=== PATIENT | male | born 1965 | race Caucasian/White ===

== ENCOUNTER 2024-10-30 07:25 | Emergency (ER) | payer OTHER ==
--- NOTE | 2024-10-30 07:45 | ED ---
URI HPI - General Chief Complaint: Upper Respiratory Infection Stated Complaint: fever Time Seen by Provider: 10/30/24 07:32 Source: patient, EMS, RN notes reviewed Mode of arrival: EMS Limitations: no limitations - History of Present Illness Initial Comments: This is a 58-year-old male who presents to the emergency department for coughing and congestion. States that it started last night. Cough is nonproductive. Denies any chest pain or shortness of breath. His roommates have been sick with similar symptoms. Additionally, states that he has been experiencing a flareup of his lower back pain with sciatica down the right leg. Denies any new injuries. Also denies any loss of bowel/bladder control or saddle anesthesia. States that he is waiting for his PCP to refer him to an orthopedic surgeon in the area as he just moved here from [place]. MD Complaint: cough, nasal congestion - Related Data Previous Rx's Medication Instructions Recorded Albuterol Sulfate [Albuterol 1 - 2 puff PO Q4-6H PRN #8.5 gm 10/30/24 Sulfate Hfa] Benzonatate [Tessalon Perle] 200 mg PO Q8H PRN #30 capsule 10/30/24 Meloxicam [Mobic] 15 mg PO DAILY PRN #30 tab 10/30/24 Oseltamivir [Tamiflu] 75 mg PO Q12HR 5 Days #10 cap 10/30/24 methocarbamoL [Robaxin-750] 1,500 mg PO TID PRN #30 tab 10/30/24 Allergies Allergy/AdvReac Type Severity Reaction Status Date / Time No Known Allergies Allergy Verified 10/30/24 07:41 Review of Systems ROS Statement: Those systems with pertinent positive or pertinent negative responses have been documented in the HPI. ROS Other: All systems not noted in ROS Statement are negative. Past Medical History Past Medical History: Asthma, COPD, Hyperlipidemia, Hypertension Additional Past Medical History / Comment(s): degenerative discs History of Any Multi-Drug Resistant Organisms: None Reported Additional Past Surgical History / Comment(s): Jaw repair Past Psychological History: No Psychological Hx Reported Smoking Status: Current every day smoker Past Alcohol Use History: Heavy Past Drug Use History: None Reported General Exam Limitations: no limitations General appearance: alert, in no apparent distress Head exam: Present: atraumatic, normocephalic, normal inspection Respiratory exam: Present: normal lung sounds bilaterally. Absent: respiratory distress, wheezes, rales, rhonchi, stridor Cardiovascular Exam: Present: regular rate, normal rhythm Neurological exam: Present: alert, oriented X3, CN II-XII intact Psychiatric exam: Present: normal affect, normal mood Skin exam: Present: warm, dry, intact, normal color. Absent: rash Course Vital Signs 10/30/24 10/30/24 10/30/24 07:27 09:04 09:13 Temperature 102.8 F H Pulse Rate 108 H 96 100 Respiratory 22 Rate Blood Pressure 126/72 O2 Sat by Pulse 93 L Oximetry 10/30/24 09:25 Temperature 99.5 F Pulse Rate 99 Respiratory 20 Rate Blood Pressure 108/70 O2 Sat by Pulse 94 L Oximetry Medical Decision Making - Medical Decision Making This is a 58-year-old male who presents to the emergency department for a cough. Was pt. sent in by a medical professional or institution? @ -No Did you speak to anyone other than the patient for history? @ -No Did you review nursing and triage notes? @ -Yes, and I agree, it is accurate with regards to the patient's symptoms. Were old charts reviewed? @ -No Differential Diagnosis? @ -Differential Cough: Influenza, Covid, RSV, croup, allergic rhinitis, GERD, pneumonia, bronchitis, COPD, viral pharyngitis, streptococcal pharyngitis, this is not meant to be an all-inclusive list. EKG interpreted by me (3pts min.)? @ -Not obtained X-rays interpreted by me (1pt min.)? @ -Chest x-ray obtained. My interpretation identifies a right lower lobe patchy opacity. CT interpreted by me (1pt min.)? @ -Not obtained U/S interpreted by me (1pt. min.)? @ -Not obtained What testing was considered but not performed? (CT, X-rays, U/S, labs)? Why? @ -None What meds were considered but not given? Why? @ -None Did you discuss the management of the patient with other professionals? @ -No Did you reconcile home meds? @ -No Was smoking cessation discussed for >3mins.? @ -No Was critical care preformed (if so, how long)? @ -No Were there social determinants of health that impacted care today? How? (Homelessness, low income, unemployed, alcoholism, drug addiction, transportation, low edu. Level, literacy, decrease access to med. care, longterm, rehab)? @ -No Was there de-escalation of care discussed even if they declined? (Discuss DNR or withdrawal of care, Hospice)? @ -No What co-morbidities impacted this encounter? (DM, HTN, Smoking, COPD, CAD, Cancer, CVA, Hep., AIDS, mental health diagnosis, sleep apnea, morbid obesity)? @ -Asthma, COPD Was patient admitted / discharged? @ -Discharged. Patient positive for influenza A. Chest x-ray reveals a patchy right lower lobe opacity suggestive of atelectasis versus developing pneumonia. These changes are more likely related to the influenza A. DuoNeb breathing treatment administered. He was febrile in the emergency department with a temperature of 102.8 F. He was given a dose of Tylenol along with Toradol and Norflex for his back pain. Prescription for Tamiflu provided along with Tessalon Perles and an albuterol inhaler. He also requested medication to help with his ongoing back pain until he is able to see an orthopedic surgeon. Mobic and Robaxin were prescribed. Advised follow-up with his PCP for reevaluation of symptoms and discussion of his orthopedic surgery referral. Patient discharged home in stable condition. Case discussed with ED attending Dr. Montesinos. Return precautions reviewed in depth, the patient is instructed to return to the emergency department with any new, worsening, or concerning symptoms. Patient verbalized understanding. Undiagnosed new problem with uncertain prognosis? @ -None Drug Therapy requiring intensive monitoring for toxicity (Heparin, Nitro, Insulin, Cardizem)? @ -None Were any procedures done? @ -None Diagnosis/symptom? @ -Influenza A Acute, or Chronic, or Acute on Chronic? @ -Acute Uncomplicated (without systemic symptoms) or Complicated (systemic symptoms)? @ -Uncomplicated Side effects of treatment? @ -None Exacerbation, Progression, or Severe Exacerbation] @ -Not applicable Poses a threat to life or bodily function? @ -No - Lab Data Lab Results 10/30/24 Range/Units 07:51 Influenza Type A (PCR) Detected A (Not Detectd) Influenza Type B (PCR) Not Detected (Not Detectd) RSV (PCR) Not Detected (Not Detectd) SARS-CoV-2 (PCR) Not Detected (Not Detectd) - Radiology Data Radiology results: report reviewed, image reviewed Disposition Clinical Impression: Influenza A, Chronic back pain, Right lumbar radiculopathy Disposition: HOME SELF-CARE Instructions (If sedation given, give patient instructions): Influenza (ED) Additional Instructions: Return to the emergency department with any new, worsening, or concerning symptoms. Take the Tamiflu as prescribed for 5 days. Take the Tessalon Perles up to every 8 hours as needed for coughing. You can use the albuterol inhaler every 4-6 hours as needed to help with shortness of breath and coughing. Take the Mobic once daily as needed for back pain. Take Tylenol as needed for any additional fevers or pain relief. Take the Robaxin as 1 to 2 tablets up to 3-4 times daily. Follow up with your primary care provider in 1-2 days. Prescriptions: Albuterol Sulfate [Albuterol Sulfate Hfa] 1 - 2 puff PO Q4-6H PRN #8.5 gm PRN Reason: Shortness Of Breath Meloxicam [Mobic] 15 mg PO DAILY PRN #30 tab PRN Reason: Pain methocarbamoL [Robaxin-750] 1,500 mg PO TID PRN #30 tab PRN Reason: Pain Oseltamivir [Tamiflu] 75 mg PO Q12HR 5 Days #10 cap Benzonatate [Tessalon Perle] 200 mg PO Q8H PRN #30 capsule PRN Reason: Cough Is patient prescribed a controlled substance at d/c from ED?: No Referrals: Zeina Cleveland MD [Primary Care Provider] - 1-2 days Time of Disposition: 08:44
[2024-10-30] MEDS: ACETAMINOPHEN TAB 500 MG TAB PO STA (07:53)
[2024-10-30] MEDS: BENZONATATE 100 MG CAP PO STA (07:56)
[2024-10-30] MEDS: KETOROLAC 15 MG/ML 1 ML VIAL IM STA (07:58)
[2024-10-30] MEDS: ORPHENADRINE 30 MG/ML 2 ML VIAL IM STA (07:59)
--- NOTE | 2024-10-30 08:23 | XR ---
EXAMINATION TYPE: XR chest 2V DATE OF EXAM: 10/30/2024 8:14 AM COMPARISON: Chest radiographs from 10/28/2024 TECHNIQUE: XR chest 2V Frontal and lateral views of the chest. CLINICAL INDICATION:Male, 58 years old with history of Cough; FINDINGS: Lungs/Pleura: There is no evidence of pleural effusion or pneumothorax. Right lower lobe patchy opaci ty. Heart/mediastinum: Cardiomediastinal silhouette is unremarkable. Musculoskeletal: No acute osseous pathology. Left mandibular fixation plate. IMPRESSION: Right lower lobe patchy opacity which may represent developing pneumonia versus atelectasis. [facility], , 10/30/2024 8:20 AM
[2024-10-30 08:35] LABS: Influenza A Detected (Not Detectd); Influenza B Not Detected (Not Detectd); RSV Not Detected (Not Detectd)
[2024-10-30] MEDS: IPRATROPIUM-ALBUTEROL 3 ML NEB INHALATION STA (09:04)
[2024-10-30] MEDS: DEXAMETHASONE SOD PHOSPHATE 10 MG/ML 1 ML VIAL IVP STA (09:06)
[2024-10-30] MEDS: DEXAMETHASONE SOD PHOSPHATE 10 MG/ML 1 ML VIAL IM STA (09:16)
[2024-10-30 09:26] VITALS: BP 108/70; PULSE 99; RESP 20; TEMP 99.5
== END 2024-10-30 09:28 | disposition home or self-care (01) ==
LOC: EC 07:25
DX: G89.29 Other chronic pain (principal); J10.1 Influenza due to other identified influenza virus with other respiratory manifestations; M54.16 Radiculopathy, lumbar region; J44.89 Other specified chronic obstructive pulmonary disease; F17.200 Nicotine dependence, unspecified, uncomplicated
CPT/HCPCS: 94640; 87636; 71046; 99284; 96372 ×3; J1100; J2360; J1885

== ENCOUNTER 2025-01-10 13:32 | Emergency (ER) | payer OTHER ==
[2025-01-10 13:37] VITALS: BP 129/84; PULSE 96; RESP 20; TEMP 97.8
--- NOTE | 2025-01-10 13:45 | ED ---
ENT HPI - General Chief complaint: ENT Stated complaint: Left ear obstruction Time Seen by Provider: 01/10/25 13:38 Source: patient, RN notes reviewed Mode of arrival: ambulatory Limitations: no limitations - History of Present Illness Initial comments: 59-year-old male presents emergency department with chief complaint of left ear issues. Patient states it feels plugged up difficulty hearing he states it is painful states has been chronically nauseous taking things in his ear because he felt like there was wax but has not been able to retrieve any. Patient states he has chronic nasal congestion. Denies any headache or dizziness no trauma no other complaints. - Related Data Previous Rx's Medication Instructions Recorded Albuterol Sulfate [Albuterol 1 - 2 puff PO Q4-6H PRN #8.5 gm 10/30/24 Sulfate Hfa] Benzonatate [Tessalon Perle] 200 mg PO Q8H PRN #30 capsule 10/30/24 Meloxicam [Mobic] 15 mg PO DAILY PRN #30 tab 10/30/24 Oseltamivir [Tamiflu] 75 mg PO Q12HR 5 Days #10 cap 10/30/24 methocarbamoL [Robaxin-750] 1,500 mg PO TID PRN #30 tab 10/30/24 Amoxic-Pot Clav 875-125Mg 1 tab PO Q12HR #20 tab 01/10/25 [Augmentin 875-125] Allergies Allergy/AdvReac Type Severity Reaction Status Date / Time No Known Allergies Allergy Verified 10/30/24 07:41 Review of Systems ROS Statement: Those systems with pertinent positive or pertinent negative responses have been documented in the HPI. ROS Other: All systems not noted in ROS Statement are negative. Past Medical History Past Medical History: Asthma, COPD, Hyperlipidemia, Hypertension Additional Past Medical History / Comment(s): degenerative discs History of Any Multi-Drug Resistant Organisms: None Reported Additional Past Surgical History / Comment(s): Jaw repair Past Psychological History: No Psychological Hx Reported Smoking Status: Current every day smoker Past Alcohol Use History: Abuse, Heavy Past Drug Use History: None Reported General Exam Limitations: no limitations General appearance: alert, in no apparent distress Head exam: Present: atraumatic, normocephalic, normal inspection Eye exam: Present: normal appearance, PERRL, EOMI. Absent: scleral icterus, conjunctival injection, periorbital swelling ENT exam: Present: normal oropharynx, mucous membranes moist, normal external ear exam (Normal canal). Absent: normal exam, TM's normal bilaterally (Erythematous, mild fluid noted) Neck exam: Present: normal inspection, full ROM. Absent: tenderness, meningismus, lymphadenopathy Respiratory exam: Present: normal lung sounds bilaterally. Absent: respiratory distress, wheezes, rales, rhonchi, stridor Cardiovascular Exam: Present: regular rate, normal rhythm, normal heart sounds. Absent: systolic murmur, diastolic murmur, rubs, gallop, clicks Course Vital Signs 01/10/25 13:33 Temperature 97.8 F Pulse Rate 96 Respiratory 20 Rate Blood Pressure 129/84 O2 Sat by Pulse 94 L Oximetry Medical Decision Making - Medical Decision Making Was pt. sent in by a medical professional or institution (JULIET Yoder, TECHNICAL SERVICES REPRESENTATIVE, urgent care, hospital, or skilled nursing...) When possible be specific @ -No Did you speak to anyone other than the patient for history (EMS, parent, family, police, friend...)? What history was obtained from this source @ -No Did you review nursing and triage notes (agree or disagree)? Why? @ -I reviewed and agree with nursing and triage notes Were old charts reviewed (outside hosp., previous admission, EMS record, old EKG, old radiological studies, urgent care reports/EKG's, skilled nursing records)? Report findings @ -No old charts were reviewed Differential Diagnosis (chest pain, altered mental status, abdominal pain women, abdominal pain men, vaginal bleeding, weakness, fever, dyspnea, syncope, headache, dizziness, GI bleed, back pain, seizure, CVA, palpatations, mental health, musculoskeletal)? @ -Otitis media otitis externa station tube dysfunction EKG interpreted by me (3pts min.). @ -None X-rays interpreted by me (1pt min.). @ -None done CT interpreted by me (1pt min.). @ -None done U/S interpreted by me (1pt. min.). @ -None done What testing was considered but not performed or refused? (CT, X-rays, U/S, labs)? Why? @ -None What meds were considered but not given or refused? Why? @ -None Did you discuss the management of the patient with other professionals (professionals i.e. Dr., PA, TECHNICAL SERVICES REPRESENTATIVE, lab, RT, psych nurse, oncology social worker, seismic prospecting observer, teacher, environmental technical officer, case reviewer)? Give summary @ -No Was smoking cessation discussed for >3mins.? @ -No Was critical care preformed (if so, how long)? @ -No Were there social determinants of health that impacted care today? How? (Homelessness, low income, unemployed, alcoholism, drug addiction, transportation, low edu. Level, literacy, decrease access to med. care, nursing home, rehab)? @ -No Was there de-escalation of care discussed even if they declined (Discuss DNR or withdrawal of care, Hospice)? DNR status @ -No What co-morbidities impacted this encounter? (DM, HTN, Smoking, COPD, CAD, Cancer, CVA, ARF, Chemo, Hep., AIDS, mental health diagnosis, sleep apnea, morbid obesity)? @ -None Was patient admitted / discharged? Hospital course, mention meds given and route, prescriptions, significant lab abnormalities, going to OR and other pertinent info. @ -Discharge patient has otitis media there is no VAC issues. We discussed that there is some fluid and may be underlying eustachian tube dysfunction we will continue antihistamines, decongestions and antibiotics as directed. Undiagnosed new problem with uncertain prognosis? @ -No Drug Therapy requiring intensive monitoring for toxicity (Heparin, Nitro, Insulin, Cardizem)? @ -No Were any procedures done? @ -No Diagnosis/symptom? @ -Otitis media Acute, or Chronic, or Acute on Chronic? @ -Acute Uncomplicated (without systemic symptoms) or Complicated (systemic symptoms)? @ -Uncomplicated Side effects of treatment? @ -No Exacerbation, Progression, or Severe Exacerbation? @ -No Poses a threat to life or bodily function? How? (Chest pain, [place], [place], pneumonia, PE, COPD, DKA, ARF, appy, cholecystitis, CVA, Diverticulitis, Homicidal, Suicidal, threat to staff... and all critical care pts) @ -No Disposition Clinical Impression: Otitis media Disposition: HOME SELF-CARE Condition: Stable Instructions (If sedation given, give patient instructions): Earache (ED) Additional Instructions: Please return to the Emergency Department if symptoms worsen or any other concerns. Prescriptions: Amoxic-Pot Clav 875-125Mg [Augmentin 875-125] 1 tab PO Q12HR #20 tab Is patient prescribed a controlled substance at d/c from ED?: No Referrals: Zeina Cleveland MD [Primary Care Provider] - 1-2 days Time of Disposition: 13:45
== END 2025-01-10 14:00 | disposition home or self-care (01) ==
LOC: EC 13:32
DX: H66.92 Otitis media, unspecified, left ear (principal); F17.200 Nicotine dependence, unspecified, uncomplicated
CPT/HCPCS: 99282

== ENCOUNTER → 2025-02-01 | Outpatient (CLI) | payer OTHER ==
[2025-02-01 14:57] VITALS: BP 106/68; PULSE 104; RESP 16; TEMP 97.7
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
== END ==
LOC: 3 N SLEEP 14:30
PROVIDERS: ATTEND Internal Medicine Critical Care Medicine
DX: G47.10 Hypersomnia, unspecified (principal); R06.83 Snoring; J44.9 Chronic obstructive pulmonary disease, unspecified; E66.9 Obesity, unspecified; M95.2 Other acquired deformity of head; I10 Essential (primary) hypertension; E78.5 Hyperlipidemia, unspecified; Z68.41 Body mass index [BMI] 40.0-44.9, adult; Z87.828 Personal history of other (healed) physical injury and trauma
CPT/HCPCS: 99211

== ENCOUNTER 2025-03-11 19:38 | Outpatient (CLI) | payer OTHER | END 2025-03-12 05:35 | disposition home or self-care (01) | LOC: 3 N SLEEP 19:38 | PROVIDERS: ATTEND Internal Medicine Critical Care Medicine | DX: G47.33 Obstructive sleep apnea (adult) (pediatric) (principal) | CPT/HCPCS: 95810 ==

== ENCOUNTER → 2025-04-19 | Outpatient (CLI) | payer OTHER ==
--- NOTE | 2025-04-19 09:47 | US ---
EXAMINATION TYPE: US abdomen complete DATE OF EXAM: 04/19/2025 COMPARISON: NONE CLINICAL INDICATION: Male, 59 years old with history of R14.0 ABDOMINAL DISTENSION (GASEOUS); Pt stat es weight gain TECHNIQUE: Grayscale and color Doppler imaging of the abdomen was performed. FINDINGS: EXAM MEASUREMENTS: Liver Length: 20.5 cm Gallbladder Wall: 0.3 cm CBD: 0.5 cm, color Doppler imaging was utilized to isolate the common bile duct for measurement. Spleen: 9.1 cm Right Kidney: 10.3 x 4.8 x 5.4 cm Left Kidney: 10.1 x 5.9 x 5.4 cm MANAGER STUDIO NOTES: Large pt body habitus and gassy with heavy breathing- very difficult to penetrat e Pancreas: Obscured by bowel gas Liver: Enlarged, echogenic, difficult to penetrate Gallbladder: Tiny 8 mm mobile gallstone. No wall thickening or surrounding fluid. Evidence for sonographic Odom's sign: No CBD: wnl Spleen: wnl Right Kidney: No evidence for hydronephrosis. Lower pole gassed out Left Kidney: No evidence for hydronephrosis. Limited visualization due to overlying bowel gas and pt large- possible hypoechoic or cystic lesion mid/medial= 2.2 x 3.0 x 2.9 cm Upper IVC: wnl Abd Aorta: Obscured by overlying bowel gas IMPRESSION: 1. Technically limited due to patient's condition and bowel gas. 2. Hepatomegaly at 20.5 cm with severe hepatic steatosis. Appropriate clinical management is advised. 3. A tiny 8 mm gallstone. No biliary ductal dilatation. 4. Limited visualization left kidney. There is no evident hydronephrosis. However, there is a possibl e 3.0 cm centrally located cyst versus mass. Renal mass protocol CT or MRI can further evaluate. Cyst is somewhat favored. If low clinical suspicion, a three-month follow-up ultrasound can alternatively be considered. [facility], , 04/19/2025 9:44 AM
== END | disposition home or self-care (01) ==
LOC: RADUSWWP 08:33
PROVIDERS: ATTEND Family Medicine
DX: K76.0 Fatty (change of) liver, not elsewhere classified (principal); R16.0 Hepatomegaly, not elsewhere classified; K80.20 Calculus of gallbladder without cholecystitis without obstruction
CPT/HCPCS: 76700